=== PATIENT | female | born 1970 | race Hispanic/Latino ===

== ENCOUNTER → 2019-09-13 | Outpatient (CLI) | payer OTHER ==
--- NOTE | 2019-09-13 09:29 | Diagnostic Imaging Report ---
Right knee MRI without contrast. History: Knee pain. Decreased range of motion. Patellar bursitis. Comparison: None. Technique: Multiplanar multi-sequence MRI of the knee without contrast. Findings: Medial compartment: No meniscal tear, cartilage abnormality, or MCL tear. Lateral compartment: Complex tear involving the posterior horn and body segments of the lateral meniscus best seen on coronal image 10 and 11. The lateral compartmental articular cartilage surfaces are slightly thin. The lateral collateral ligament complex is intact. Intercondylar notch: The ACL and PCL are intact. Patellofemoral compartment: No chondromalacia or patellar dislocation. Extensor mechanism: The quadriceps and patellar tendons are normal. Other findings: There is a joint effusion and synovitis. There is no acute fracture, subluxation or avascular necrosis. Mild prepatellar soft tissue edema/bursitis. IMPRESSION: Mild prepatellar soft tissue edema/bursitis. Complex lateral meniscus tear with mild degenerative arthrosis in the lateral compartment of the knee. Joint effusion and synovitis. Signed by: Dr. Flaquito De La Fuente M.D. on 09/13/2019 9:27 AM
== END ==
LOC: MRI 07:50
PROVIDERS: ATTEND Family Medicine
DX: M70.51 Other bursitis of knee, right knee (principal)

== ENCOUNTER → 2019-12-19 | Day surgery (SDC) | payer OTHER ==
[~2019-12-19] MED LIST: ACETAMINOPHEN 1000 MG/100 ML 100 ML IV ONE; BUPIVACAINE 0.5%/EPI 30 ML SDV INJ ONE; CEFAZOLIN SOD 1 GM/NS 50ML 100 ML IV ONE; DEXAMETHASONE SOD PHOS INJ 4 MG/ML VIAL ONE; FENTANYL CITRATE/PF 100MCG/2 ML INJ ONE; LIDOCAINE HCL 2% LOCAL INJ 5 ML SDV VIAL INJ ONE; MIDAZOLAM HCL 2 MG/2 ML VIAL ONE; ONDANSETRON HCL INJ 2MG/ML 2ML 2 MG/ML VIAL ONE; PROPOFOL IV EMULSION 10 MG/ML 20 ML VIAL ONE; SEVOFLURANE INHAL SOLN 250 ML PEN BTL ONE
--- NOTE | 2019-12-19 07:13 | NUR ---
SPIRITUAL CARE - Pre-Surgery Assessment: Pt in bed. Pt's daughter at bedside. Pt reported supportive attention from family and friends. Intervention: I provided pastoral presence, hospitality, and sympathetic listening. I acquainted pt with availability of wetlands technician while hospitalized. Outcome: Pt expressed appreciation for visit. No need for follow up indicated at this time. SAL[facility] Spiritual Care Department O: [phone]
[2019-12-19 10:35] VITALS: BP 107/58
--- NOTE | 2019-12-21 20:40 | Operative Report ---
DATE OF PROCEDURE: 12/19/2019 SURGEON: Shaan Perez MD PREOPERATIVE DIAGNOSES: Right knee lateral meniscus tear, right knee degenerative joint disease of the knee. POSTOPERATIVE DIAGNOSES: Right knee lateral meniscus tear, right knee degenerative joint disease of the knee. OPERATION PROCEDURE PERFORMED: The patient underwent right knee exam under anesthesia, right knee arthroscopy right knee partial lateral meniscectomy, right knee chondroplasty of the patella, trochlea, the medial femoral condyle, the medial tibial plateau, the lateral femoral condyle and lateral tibial plateau. BUSINESS SYSTEMS MANAGER: There was no visitor information assistant. ANESTHESIA: General endotracheal intubation anesthesia. IV FLUIDS: Per the anesthesia record. BRIEF DESCRIPTION OF THE PATIENT'S OPERATIVE PROCEDURE: Ms. Chung was taken to the operating room and placed in the supine position on the operating table. Following induction of general anesthesia as well as endotracheal intubation, the patient's right lower extremity was examined under anesthesia. She was found to have a mild effusion within the knee joint, but otherwise ligamentously stable knee. The patient's lower extremity was prepped and draped in standard surgical fashion. A two-port technique was used to provide this patient arthroscopic evaluation of the knee joint. Examination of suprapatellar pouch and medial and lateral gutters found no evidence of loose bodies. There was however evidence of chondromalacia of the patella and trochlear surfaces. The scope was then advanced to the medial compartment. Examination of the medial compartment demonstrated chondromalacia articulating surfaces. A motorized shaver was placed within the knee joint and chondroplasties of the medial femoral condyle and medial tibial plateau were performed at this time. Scope was then advanced to the intercondylar notch and the anterior cruciate ligament was identified and found to be intact. 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 A combination of biting forceps and motorized shaver were used to resect the torn portion of meniscus and saucerized the remaining meniscus to a more anatomic shape. There was chondromalacia of the articulating surfaces and a chondroplasty of the lateral femoral condyle and lateral tibial plateau performed at this time. The scope was then placed in suprapatellar pouch and chondroplasties of the patella and trochlea were performed. The knee was deflated with sterile normal saline. Each of the portal sites were closed using 4-0 nylon suture. The portal sites as well as knee itself were then injected with 0.5% Marcaine with epinephrine. Sterile dressings were applied. The patient was awakened and taken to the postanesthesia care unit in stable condition. MD YAO Holden/COLETTE /[id number]
== END | disposition home or self-care (01) ==
LOC: OR 06:25
PROVIDERS: ATTEND Specialist
DX: S83.261A Peripheral tear of lateral meniscus, current injury, right knee, initial encounter (principal); M17.11 Unilateral primary osteoarthritis, right knee; Z11.59 Encounter for screening for other viral diseases
CPT/HCPCS: 29881; 87635; J0131; J0690; J1100; J2001; J2250; J2405; J2704; J3010